=== PATIENT | female | born 1955 | race Caucasian/White ===

== ENCOUNTER → 2020-04-03 06:57 | Day surgery (SDC) | payer OTHER ==
[~2020-04-03] VITALS: Ht 167.6 cm; Wt 59.1 kg
[~2020-04-03 06:57] MED LIST: BAYER CHEWABLE81 MG PO; CATAPRES0.2 MG PO; CELEXA40 MG PO; CYCLOBENZAPRINE10 MG PO; OMEPRAZOLE20 M1 PO; PRAVASTATIN SOD10 MG PO; VITAMIN B-12500 MCG PO
[2020-04-03 07:19] LABS: BASOPHILS 1.3 % (0-2); EOSINOPHILS 1.3 % (0-7); HEMATOCRIT 36.1 % (36.0-48.0); HEMOGLOBIN 11.5 g/dL (12-16); IMMATURE GRANULOCYTES 0.4 % (0-5); LYMPHOCYTES 29.1 % (15-50); MCH 29.5 pg (26.0-34.0); MCHC 31.9 g/dL (31.0-37.0); MCV 92.6 fL (80.0-100.0); MEAN PLATELET VOLUME 8.5 fL (7.4-10.4); MONOCYTES 7.8 % (2-11); NEUTROPHILS 60.1 % (40-80); PLATELET COUNT 398 10x3/uL (130-400); RDW 16.7 % (11.5-14.5); WBC 7.8 10x3/uL (4.8-10.8)
[2020-04-03 07:28] LABS: ANION GAP 14.3 mmol/L (8-16); CARBON DIOXIDE 26.4 mmol/L (21.0-32.0); CREATININE - SERUM 0.9 mg/dL (0.6-1.3); POTASSIUM - SERUM 3.7 mmol/L (3.5-5.1)
[2020-04-03 08:13] VITALS: BP 140/75; Ht 167.6 cm; Wt 59.1 kg
--- NOTE | 2020-04-03 11:40 | NUR ---
DOING WELL. TAKEN DOWN VIA W/C TO CAR WITH BY ANUM SARKAR RN. ADVISED TO CALL OR COME BACK IF ANY PROBLEMS.
--- NOTE | 2020-04-05 13:32 | HP ---
PATIENT: ANGELA LOZOYA MEDICAL RECORD: [id number] ACCOUNT: [id number] LOCATION:[facility] : 57 ADMISSION DATE: 04/03/20 PCP: PORSCHE SANTIZO MD HISTORY AND PHYSICAL EXAMINATION HISTORY OF PRESENT ILLNESS: The patient is here for endoscopy. She has had a history of cecal angioectasias. She has had 2 blood transfusions. The patient has iron-deficiency anemia as well. She has noted no blood in her stool. She does have gastroesophageal reflux and she is on omeprazole for this. She is concerned that she may have upper tract bleeding and right now we are trying to see if we can get an EGD precertified. PAST MEDICAL AND SURGICAL HISTORY: The patient had history of colon polyps, glaucoma, hypertension, duodenitis, hiatal hernia, diverticular disease of the large bowel, diverticulosis, cholesterol. SOCIAL HISTORY: Every day smoker. ALLERGIES: BACTRIM. PHYSICAL EXAMINATION: GENERAL: The patient does not appear acutely ill. She does not appear chronically ill. VITAL SIGNS: Reviewed. EARS: External ears appear normal. EYES: Extraocular movements are intact. NECK: Trachea is midline. CHEST: No intercostal retractions. PULMONARY: Nonlabored, no stridor. IMPRESSION: 1. Gastroesophageal reflux. 2. Iron-deficiency anemia. 3. Angioectasias of the colon. 4. History of colon polyps in need of surveillance. PLAN: Colonoscopy with possible EGD. TRANSINT:[id number] Voice Confirmation ID: [id number] DOCUMENT ID: [id number] DALILA SALTER MD at 1332 CC: ADIEL MCCABE MD and PORSCHE SANTIZO MD [id number] DICTATION DATE: 04/03/20 0948 MUSIC MIXER: 04/03/20 1001 [facility] 04/03/20 [facility] [address] [id number]
--- NOTE | 2020-04-05 13:32 | OP ---
PATIENT NAME: ANGELA LOZOYA MEDICAL RECORD: [id number] :57 LOCATION:[facility] ADMISSION DATE: SURGEON: BRAYAN SALTER MD DATE OF OPERATION: 04/03/2020 PREOPERATIVE DIAGNOSES: 1. Angioectasias of the cecum. 2. Blood loss anemia requiring transfusions. 3. Iron deficiency anemia. 4. History of colon polyps. POSTOPERATIVE DIAGNOSES: 1. Angioectasias of the cecum. 2. Blood loss anemia requiring transfusions. 3. Iron deficiency anemia. 4. History of colon polyps. 5. Angioectasia of the duodenal bulb. 6. Angioectasias of the antrum and fundus of the stomach. 7. Large hiatal hernia. 8. Large angioectasia of the cecum. 9. Small sessile polyps of the rectum, all less than 7 mm in diameter. PROCEDURES: 1. Esophagogastroduodenoscopy with antral and distal esophageal biopsies. 2. Total colonoscopy to cecum. 3. Endoscopic ablation of the angioectasias of the cecum, duodenal bulb, and stomach. 4. Endoscopic ablation of 9 rectal polyps. SURGEON: Brayan Salter MD CHIEF EXECUTIVE: None. BLOOD LOSS: Minimal. ANESTHESIA: IV sedation. COMPLICATIONS: None. The risks, possible complications and alternatives to the procedure were explained to the patient. She elects to proceed. ENDOSCOPIC COURSE: The patient was conveyed to the endoscopy suite electively on 04/03/2020. IV sedation was induced by the anesthesia staff. A bite block was inserted. A gastroscope was inserted into the mouth. It was advanced easily into the hypopharynx. The esophagus was easily intubated as were the stomach and duodenum. Following withdrawal, retroflexed and angulus views were obtained. Antral biopsies were obtained to rule out H. pylori. I advanced into the duodenal bulb. I then ablated the duodenal angioectasia utilizing the esophageal setting in the forced mode. I then withdrew into the stomach. The angioectasias here were ablated utilizing the argon plasma reprint sorter with the esophageal setting in the forced mode. Distal esophageal biopsies were obtained to rule out Tapia esophagus. The endoscope was then withdrawn under direct vision. OPERATIVE REPORT [id number] ANGELA LOZOYA The patient was turned 180 degrees and placed in the Gonzalez position. A digital rectal examination was performed. A colonoscope was inserted through the anus. It was easily advanced to the cecum. In the cecum, a large angioectasia was identified and this was ablated utilizing the esophageal setting in the forced mode. This angioectasia was ablated in its entirety. I then slowly withdrew the endoscope. There were small polyps within the rectum. These were ablated utilizing the argon plasma reprint sorter with the right colon setting in the forced mode. A retroflexed view was obtained in the rectum. I then unretroflexed the scope and removed it under direct vision. I am going to plan for her next surveillance colonoscopy to take place in [address] Mckeon can perform this procedure as she referred the patient to me. TRANSINT:[id number] Voice Confirmation ID: [id number] DOCUMENT ID: [id number] BRAYAN SALTER MD at 1332 CC: ADIEL MCKOEN MD [id number] DICTATION DATE: 04/03/20 1107 DIRECTOR OF STUDENT AFFAIRS: 04/03/20 1244 [facility] 04/03/20 [id number] [place] [address]
== END | disposition home or self-care (01) ==
LOC: D.OPS 06:57
PROVIDERS: Anesthesiology; ATTEND Surgery
DX: D50.0 Iron deficiency anemia secondary to blood loss (chronic) (principal); Z86.010 Personal history of colon polyps; K44.9 Diaphragmatic hernia without obstruction or gangrene; K62.1 Rectal polyp; K21.9 Gastro-esophageal reflux disease without esophagitis; I10 Essential (primary) hypertension; Z72.0 Tobacco use; K55.20 Angiodysplasia of colon without hemorrhage